=== PATIENT | male | born 1945 | race Caucasian/White ===

== ENCOUNTER 2016-12-25 11:12 | Day surgery (SDC) | payer MEDICARE, OTHER ==
[2016-12-20 09:26] LABS: HEMATOCRIT 43.3 % (40.0-51.0); HEMOGLOBIN 14.9 g/dL (13.6-17.8)
[2016-12-20 09:38] LABS: BUN (BLOOD UREA NITROGEN) 40 MG/DL (6-23); CALCIUM, SERUM 9.6 MG/DL (8.5-10.4); CHLORIDE, SERUM 104 MMOL/L (96-112); CO2 (CARBON DIOXIDE) 28 MMOL/L (24-34); CREATININE 3.08 MG/DL (0.70-1.30); GFR AFRICAN AMERICAN 22 ML/MIN (>=60); GFR NON AFRICAN AMERICAN 19 ML/MIN (>=60); GLUCOSE, SERUM 118 MG/DL (60-99); POTASSIUM, SERUM 4.6 MMOL/L (3.5-5.3); SODIUM, SERUM 137 MMOL/L (135-148)
[2016-12-20 10:09] LABS: ASCORBIC ACID (UR NOT ORDER) NEG (NEG); BILIRUBIN, URINE NEGATIVE (NEG); KETONE, URINE NEGATIVE (NEG); LEUKOCYTE ESTERASE(NOT OR NEG (NEG); WBC (NOT ORDERED) (RFLEX) 3 (0-5)
--- NOTE | ~2016-12-25 | OP ---
Record Of Operation [facility] [address] [place]. [address] NAME: DANIELLA FOWLER : 45 STATUS : [facility]#: [id number] AGE: 71 ADM/REG DATE : 12/25/16 MR#: [id number] REPORT SERV DATE: 12/26/16 DICTATED BY: WARREN ARAMBULA DATE: 12/26/16 REPORT STATUS : Draft TRANSCRIBED BY: MODBrian DATE: 12/26/16 DATE OF PROCEDURE: 12/25/2016 TITLE OF OPERATION: Cystourethroscopy with right retrograde pyelogram, placement of 6 x 28 right ureteral stent, transurethral resection of bladder tumor approximately 3 cm in size. PREOPERATIVE DIAGNOSES: 1. Hydronephrosis. 2. History of prostate cancer. POSTOPERATIVE DIAGNOSES: 1. Right hydronephrosis. 2. History of prostate cancer. 3. Bladder lesion of unclear significance. INDICATIONS: Mr. Fowler is a 71-year-old male with history of prostate cancer, status post radical prostatectomy. He has had not had any radiation therapy. He has a rising PSA. He would not tolerate hormone therapy. He is found to have incidental right hydronephrosis. He is asymptomatic with a creatinine of 3. He is here for evaluation. ANESTHESIA: General. COMPLICATIONS: None. IMPLANT: 6 x 28 right ureteral stent. SPECIMEN: Bladder mass for pathologic analysis. NARRATIVE: The patient was brought to the operating room, identified by his wristband. General anesthesia was induced. Ancef was given for preoperative antibiotics. He was placed in dorsal lithotomy position, prepped and draped in sterile fashion. A cystoscope was placed into his urethra, into his bladder. The urethra was notable for a surgically absent prostate. The prostatic urethra, the vesicourethral anastomosis was well healed. There was a raised lesion in the bradford trigone, which did not have an appearance of a papillary bladder tumor. I am concerned this is either an aggressive bladder cancer versus a recurrence of his prostate cancer. The right ureteral orifice was identified and cannulated with a 5-Angolan open-ended catheter. A retrograde pyelogram was shot, which demonstrated abrupt stoppage of contrast in the distal ureter. We were able to get a Sensor wire pass this area and advanced a 5-Angolan catheter over the wire into the mid ureter. Retrograde pyelogram was shot, which showed a dilated and tortuous right ureter. I eventually got the wire up to the level of the renal pelvis under fluoroscopic guidance and placed a 6 x 28 ureteral stent in a standard fashion. The proximal coil was seen in the renal pelvis. Distal coil was seen in the bladder. Next, I removed the cystoscope and placed a 26-Angolan resectoscope into his urethra and into his bladder. Using a 24-Angolan loop, I resected his bladder lesion to its base. These chips were evacuated from the bladder and was sent to Pathology. Hemostasis was obtained. The bladder was drained. The Record Of Operation [facility] [address] [place]. [address] NAME: DANIELLA FOWLER : 45 STATUS : [facility]#: [id number] AGE: 71 ADM/REG DATE : 12/25/16 MR#: [id number] REPORT SERV DATE: 12/26/16 DICTATED BY: WARREN ARAMBULA DATE: 12/26/16 REPORT STATUS : Draft TRANSCRIBED BY: MEHDI DATE: 12/26/16 patient was awoken from anesthesia and transferred to recovery room in stable condition. There were no complications. I will see the patient back in a week to go over pathology. MIRIAN/MEHDI Warren Arambula MD / [id number] CC: MD Kevin Dorsey M.D.
[~2016-12-25 11:12] MED LIST: ASAB PO; ATEN25 PO; BACTRONASA NAS; CENTRUM TAB1 TAB PO; COREG12 PO; COREG25 PO; DIOV160 PO; DIOV80 PO; FISH-EPA1000 MG PO; FLAGYL250 MG PO; FLAXSEED OIL1000 MG PO; FLONASE NAS; LEVAQUIN5T PO; LIPITOR40 PO; LOFIB160 PO; LOPID6 PO; NICODERM C21 MG/241 TOP; NITROSTAT0.4 MG SL; NORV5 PO; PRAVACHOL40 MG PO; PRIN10 PO; PROTONIX PO
[2017-05-06] MEDS ORDERED: ASABAYER PO (10:20)
[2017-05-06] MEDS ORDERED: LIPITOR80 MG PO (10:20)
[2017-05-06] MEDS ORDERED: COREG12 PO (10:21)
[2017-05-06] MEDS ORDERED: ARICEPT10 PO (10:21)
[2017-05-06] MEDS ORDERED: AZO STANDARD PO (10:22)
[2017-05-06] MEDS ORDERED: FLONASE NAS (10:22)
[2017-05-06] MEDS ORDERED: TRAZ50 PO (10:28)
== END 2016-12-25 16:55 | disposition home or self-care (01) ==
LOC: SDC 11:12
PROVIDERS: Urology
PROC: 0T768DZ Dilation of Right Ureter with Intraluminal Device, Via Natural or Artificial Opening Endoscopic (ICD-10-PCS; 2016-12-25)
PROC: BT1DZZZ Fluoroscopy of Right Kidney, Ureter and Bladder (ICD-10-PCS; 2016-12-25)
PROC: 0TBB8ZX Excision of Bladder, Via Natural or Artificial Opening Endoscopic, Diagnostic (ICD-10-PCS; 2016-12-25)
PROC: 0TBB8ZX Excision of Bladder, Via Natural or Artificial Opening Endoscopic, Diagnostic (ICD-10-PCS; principal; 2016-12-25 12:45)
DX: C67.9 Malignant neoplasm of bladder, unspecified (principal); N13.30 Unspecified hydronephrosis; E78.5 Hyperlipidemia, unspecified; E78.00 Pure hypercholesterolemia, unspecified; I25.10 Atherosclerotic heart disease of native coronary artery without angina pectoris; B19.10 Unspecified viral hepatitis B without hepatic coma; N18.9 Chronic kidney disease, unspecified; I12.9 Hypertensive chronic kidney disease with stage 1 through stage 4 chronic kidney disease, or unspecified chronic kidney disease; Z85.46 Personal history of malignant neoplasm of prostate; Z98.890 Other specified postprocedural states; Z90.79 Acquired absence of other genital organ(s); Z95.1 Presence of aortocoronary bypass graft; Z90.49 Acquired absence of other specified parts of digestive tract; Z88.8 Allergy status to other drugs, medicaments and biological substances; Z79.82 Long term (current) use of aspirin; Z79.899 Other long term (current) drug therapy
CPT/HCPCS: 74420; 80048; 81001; 85014; 85018; 88307; 88341; 88342; 93005; A9270-GY; C1758; C2617; J0690; J2250; J2405; J3010

== ENCOUNTER 2017-01-20 05:14 | Observation (INO) | payer MEDICARE, OTHER ==
[2017-01-16 16:32] LABS: HEMATOCRIT 41.9 % (40.0-51.0); HEMOGLOBIN 13.9 g/dL (13.6-17.8)
[2017-01-16 16:39] LABS: ASCORBIC ACID (UR NOT ORDER) NEG (NEG); BILIRUBIN, URINE NEGATIVE (NEG); KETONE, URINE NEGATIVE (NEG); LEUKOCYTE ESTERASE(NOT OR MOD (NEG); WBC (NOT ORDERED) (RFLEX) 39 (0-5)
[2017-01-16 16:45] LABS: CALCIUM, SERUM 9.5 MG/DL (8.5-10.4); CHLORIDE, SERUM 107 MMOL/L (96-112); CO2 (CARBON DIOXIDE) 27 MMOL/L (24-34); GFR AFRICAN AMERICAN 36 ML/MIN (>=60); GFR NON AFRICAN AMERICAN 31 ML/MIN (>=60); GLUCOSE, SERUM 124 MG/DL (60-99); POTASSIUM, SERUM 4.1 MMOL/L (3.5-5.3); SODIUM, SERUM 141 MMOL/L (135-148)
[2017-01-16 16:46] LABS: BUN (BLOOD UREA NITROGEN) 35 MG/DL (6-23); CREATININE 2.09 MG/DL (0.70-1.30)
--- NOTE | ~2017-01-20 | OP ---
Record Of Operation [facility] [address] [place]. [address] NAME: DANIELLA FOWLER : 45 STATUS : ADM IN [facility]#: [id number] AGE: 71 ADM/REG DATE : 01/20/17 MR#: [id number] REPORT SERV DATE: 01/20/17 DICTATED BY: WARREN ARAMBULA DATE: 01/20/17 REPORT STATUS : Draft TRANSCRIBED BY: MODL DATE: 01/20/17 DATE OF PROCEDURE: 01/20/2017 SURGEON: Warren Arambula MD FILEMON OF OPERATION: 1. Robot-assisted laparoscopic lysis of adhesions. 2. Robot-assisted laparoscopic resection of omental mass. 3. Robot-assisted laparoscopic psoas hitch with right ureteral reimplantation. PREOPERATIVE DIAGNOSIS: Hydronephrosis, secondary to distal ureteral stricture. POSTOPERATIVE DIAGNOSIS: Hydronephrosis, secondary to distal ureteral stricture. INDICATIONS: Mr. Fowler is a 71-year-old male, with a history of prostate cancer. He has a history of prostatectomy done by another surgeon. He developed a local recurrence with obstruction of his distal right ureter. He has acute renal failure. He has a stent, he has non-tolerant to the stent. He is here for ureteral reimplantation. ANESTHESIA: General. COMPLICATIONS: None. IMPLANTS: 1. 16-Maltese Hawley catheter. 2. 6 x 22 right ureteral stent. SPECIMEN: Omental mass. NARRATIVE: The patient was brought to the operating room, identified by his wristband. General anesthesia was induced and Ancef was given for preoperative antibiotics. He was placed in dorsal lithotomy position, prepped and draped in sterile fashion. A 5 mm port was placed in a supraumbilical position under direct vision. The abdomen was inspected, there were some dense colonic adhesions to his bladder. A standard X-Y port placement was performed, with two 8 mm ports on the left side of the body, and one 8 mm port on the right side of the body. A 12 mm port was placed in the right lower quadrant for an regulatory affairs assistant port. The 5 mm supraumbilical port was exchanged for an 8 mm port. The patient was placed in Trendelenburg. I began the operation by meticulously lysing the colonic adhesions off the bladder, this took approximately an hour and a half. These were there from his prior prostate surgery. Once the bladder had been freed from its attachments to the colon, I freed up down to beneath the bladder and gently lysed the rectum off the bladder. The bladder was then dropped off the pubic bone and the peritoneal attachments of the bladder were taken down bilaterally. The right ureter was then identified. It was markedly enlarged. The peritoneum overlying the ureter was incised. The ureter was dissected circumferentially and a vessel loop was placed. The ureter was dissected from the pelvic inlet and down to the level of the bladder. The ureter was then transected, the distal Record Of Operation [facility] [address] [place]. [address] NAME: DANIELLA FOWLER : 45 STATUS : ADM IN PAT#: [id number] AGE: 71 ADM/REG DATE : 01/20/17 MR#: [id number] REPORT SERV DATE: 01/20/17 DICTATED BY: WARREN ARAMBULA DATE: 01/20/17 REPORT STATUS : Draft TRANSCRIBED BY: MEHDI DATE: 01/20/17 portion was clipped. The previously placed stent was removed robotically. Next, a psoas hitch was performed from the psoas muscle to the dome of the bladder using a running 2-0 V- Loc suture. The serosa was then cleared off the bladder. A small vertical cystotomy was made through the muscularis propria and muscularis mucosa. The ureter was spatulated with Wong scissors. A running anastomosis was performed between the ureter and the bladder using two 4-0 V-Loc sutures. Prior to completion of the anastomosis, a 6 x 22 Hancock Inlay stent was placed in retrograde fashion. The bladder was tested, the connection was water tight. The serosa was closed over the reimplantation for additional support. The robot was undocked. The regulatory affairs assistant port was closed with 0 Vicryl suture using Narciso-Leonard device. A #10 round BHAVNA drain was placed to the left most lateral robotic port. It was sutured in place with a 2-0 silk suture. The other ports were removed. The wound was irrigated clear. Skin was closed with 4-0 Monocryl suture. Dermabond dressing was placed. The patient was awoken from anesthesia and transferred to recovery room in stable condition. There were no complications. I also noted a mass on the omentum that was approximately 2 cm in size. It is unclear if this was a metastatic deposit or simply reaction from prior surgery. I do favor that it was reaction of prior surgery. I was able to grasp the mass with my ProGrasp graspers. Using scissors and cautery, I resected the mass off the omentum and sent it to pathology for analysis. MIRIAN/MEHDI Warren Arambula MD / [id number] CC: Warren Arambula MD
[2017-01-20 10:51] LABS: BASOPHILS 0.4 %; BASOPHILS ABSOLUTE 0.03 10/3/uL (0.0-0.16); EOSINOPHILS 1.4 %; EOSINOPHILS ABSOLUTE 0.11 10/3/uL (0.0-0.53); HEMATOCRIT 41.3 % (40.0-51.0); IMMATURE GRANULOCYTES 0.3 %; IMMATURE GRANULOCYTES ABSOLUTE 0.02 10/3/uL (0.0-0.11); LYMPHOCYTES 9.6 %; LYMPHOCYTES ABSOLUTE 0.77 10/3/uL (0.67-4.30); MANUAL DIFF NO %; MEAN CORPUS HGB CONC 33.9 g/dL (32.0-36.0); MEAN CORPUSCULAR HEMOGLOB 29.9 pg (26.0-34.0); MEAN CORPUSCULAR VOLUME 88.2 fL (80-100); MEAN PLATELET VOLUME 10.6 fL (9.2-13.0); MONOCYTES 4.5 %; MONOCYTES ABSOLUTE 0.36 10/3/uL (0.21-1.20); NEUTROPHILS 83.8 %; NEUTROPHILS ABSOLUTE 6.69 10/3/uL (2.02-8.40); PLATELET COUNT 214 10/3/uL (150-400); RBC DISTRIBUTION WIDTH 13.5 % (12.0-16.0); RED CELL COUNT 4.68 10/6/uL (4.7-6.1)
[2017-01-20 11:02] LABS: CALCIUM, SERUM 8.6 MG/DL (8.5-10.4); CHLORIDE, SERUM 108 MMOL/L (96-112); CO2 (CARBON DIOXIDE) 25 MMOL/L (24-34); CREATININE 1.85 MG/DL (0.70-1.30); GFR AFRICAN AMERICAN 42 ML/MIN (>=60); GFR NON AFRICAN AMERICAN 36 ML/MIN (>=60); GLUCOSE, SERUM 137 MG/DL (60-99); POTASSIUM, SERUM 4.7 MMOL/L (3.5-5.3); SODIUM, SERUM 137 MMOL/L (135-148)
[2017-01-20 11:03] LABS: BUN (BLOOD UREA NITROGEN) 28 MG/DL (6-23)
[2017-01-21 07:06] LABS: BUN (BLOOD UREA NITROGEN) 26 MG/DL (6-23); CALCIUM, SERUM 8.7 MG/DL (8.5-10.4); CHLORIDE, SERUM 108 MMOL/L (96-112); CO2 (CARBON DIOXIDE) 25 MMOL/L (24-34); CREATININE 2.14 MG/DL (0.70-1.30); GFR AFRICAN AMERICAN 35 ML/MIN (>=60); GFR NON AFRICAN AMERICAN 30 ML/MIN (>=60); GLUCOSE, SERUM 127 MG/DL (60-99); POTASSIUM, SERUM 4.5 MMOL/L (3.5-5.3); SODIUM, SERUM 139 MMOL/L (135-148)
[2017-01-21] MEDS ORDERED: DSS PO (13:08)
[2017-01-21] MEDS ORDERED: PCET PO (13:09)
[2017-05-06] MEDS ORDERED: LIPITOR80 MG PO (10:20)
[2017-05-06] MEDS ORDERED: ASABAYER PO (10:20)
[2017-05-06] MEDS ORDERED: ARICEPT10 PO (10:21)
[2017-05-06] MEDS ORDERED: COREG12 PO (10:21)
[2017-05-06] MEDS ORDERED: AZO STANDARD PO (10:22)
[2017-05-06] MEDS ORDERED: FLONASE NAS (10:22)
[2017-05-06] MEDS ORDERED: TRAZ50 PO (10:28)
== END 2017-01-21 14:24 | disposition home or self-care (01) ==
LOC: SDC/OF 05:14 → PACU 10:30 → 4SO 11:47
PROVIDERS: Urology
PROC: 0DBT4ZX (ICD-10-PCS; 2017-01-20)
PROC: 0T164ZB Bypass Right Ureter to Bladder, Percutaneous Endoscopic Approach (ICD-10-PCS; principal; 2017-01-20 06:30)
DX: N13.1 Hydronephrosis with ureteral stricture, not elsewhere classified (principal); K65.4 Sclerosing mesenteritis; I25.10 Atherosclerotic heart disease of native coronary artery without angina pectoris; I12.9 Hypertensive chronic kidney disease with stage 1 through stage 4 chronic kidney disease, or unspecified chronic kidney disease; N18.9 Chronic kidney disease, unspecified; I73.9 Peripheral vascular disease, unspecified; E78.00 Pure hypercholesterolemia, unspecified; Z85.46 Personal history of malignant neoplasm of prostate; Z87.891 Personal history of nicotine dependence; Z88.8 Allergy status to other drugs, medicaments and biological substances; Z90.49 Acquired absence of other specified parts of digestive tract; Z98.890 Other specified postprocedural states; Z90.79 Acquired absence of other genital organ(s)
CPT/HCPCS: 36415; 80048; 81001; 82570; 83735; 85014; 85018; 85025; 86850; 86900; 86901; 87077; 87086; 87186; 88305; 93005; 96374; A9270-GY; C2617; G0378; J0690; J1885; J2250; J2405; J2710; J2795; J3010

== ENCOUNTER 2017-05-07 08:10 | Day surgery (SDC) | payer MEDICARE, OTHER ==
[~2017-05-07] VITALS: Ht 185.4 cm; Wt 98.9 kg
--- NOTE | ~2017-05-07 | EGD ---
EGD REPORT [facility] [address] [address] NAME: DANIELLA FOWLER : 45 STATUS : REG [facility]#: [id number] AGE: 72 ADM/REG DATE : 05/07/17 MR#: [id number] REPORT SERV DATE: 05/07/17 DICTATED BY: OZZY DOBBS DATE: 05/07/17 REPORT STATUS : Draft [facility]ANS[facility]: [facility] DATE: 05/07/17 Pulmonology Patient Name: Daniella Fowler Procedure Date: 05/07/2017 9:39 AM Date of : 1945 Attending MD: FREDRICK DOBBS MD Procedure Date No Time: 05/07/2017 Procedure: Bronchoscopy Indications: 4 mm soft tissue abnormality Providers: FREDRICK DOBBS MD Referring MD: AMANDA HARVEY, KEI SHEPARD MD Medicines: Lidocaine 2% 20 mL Complications: No immediate complications Procedure: Pre-Anesthesia Assessment: - ASA Grade Assessment: III - A patient with severe systemic disease. - A History and Physical has been performed. Patient meds and allergies have been reviewed. The risks and benefits of the procedure and the sedation options and risks were discussed with the patient. All questions were answered and informed consent was obtained. Patient identification and proposed procedure were verified prior to the procedure by the physician and the nurse in the pre-procedure area in the procedure room. Mental Status Examination: normal. Airway Examination: normal oropharyngeal airway. Respiratory Examination: clear to auscultation. CV Examination: normal and RRR, no murmurs, no S3 or S4. ASA Grade Assessment: III - A patient with severe systemic disease. After reviewing the risks and benefits, the patient was deemed in satisfactory condition to undergo the procedure. The anesthesia plan was to use general anesthesia. Immediately prior to administration of medications, the patient was re-assessed for adequacy to receive sedatives. The heart rate, respiratory rate, oxygen saturations, blood pressure, adequacy of pulmonary ventilation, and response to care were monitored throughout the procedure. The physical status of the patient was re-assessed after the procedure. After obtaining informed consent, the BF [id number] was introduced through the mouth, via laryngeal mask airway and advanced to the tracheobronchial tree. the Bronchoscope was introduced through the mouth, via laryngeal mask airway and advanced to the tracheobronchial tree. The procedure was accomplished without difficulty. The patient tolerated the procedure EGD REPORT [place] [address] [address] NAME: DANIELLA FOWLER : 45 STATUS : [place] [facility] [place]#: [id number] AGE: 72 ADM/REG DATE : 05/07/17 MR#: [id number] REPORT SERV DATE: 05/07/17 DICTATED BY: OZZY DOBBS DATE: 05/07/17 REPORT STATUS : Draft TRANSCRIBED BY: [facility] DATE: 05/07/17 [facility]. Findings: The laryngeal mask airway is in normal position. The vocal cords move normally with breathing. The subglottic space is normal. The trachea is of normal caliber. The kelli is sharp. The tracheobronchial tree was examined to at least the first subsegmental level. Bronchial mucosa and anatomy are normal; there are no endobronchial lesions. Thick retained secretions were therapeutically aspirated. Impression: Thick retained secretions were therapeutically aspirated. Recommendation: - Follow up in clinic as previously scheduled with Dr. Shepard Attending Participation: I personally performed the entire procedure. FREDRICK DOBBS MD 05/07/2017 10:47 AM This report has been signed electronically. Number of Addenda: 0 Note Initiated On: 05/07/2017 9:39 [place] [address]
--- NOTE | ~2017-05-07 | CN ---
Consultation Report [facility] [address] [place]. [address] NAME: DANIELLA FOWLER : 45 STATUS : REG [facility]#: [id number] AGE: 72 ADM/REG DATE : 05/07/17 MR#: [id number] REPORT SERV DATE: 05/07/17 DICTATED BY: BARRON DOBBS DATE: 05/07/17 REPORT STATUS : Draft TRANSCRIBED BY: MODL DATE: 05/07/17 CONSULTATION DATE OF CONSULTATION: Dear Dr. Kevin Velazquez, Dr. Jose Mulligan, and Dr. Lau: Thank you for requesting my opinion regarding evaluation and management of Mr. Daniella Fowler abnormal CT screening scan. Mr. Fowler is an extremely pleasant 72-year-old gentleman, with a 75-bcuo-holu smoking history, quit seven years ago, coronary artery disease, status post CABG in 2011, AAA stent, stroke, CKD, and an ejection fraction of approximately 45%, who presents to [facility] for formal evaluation of an abnormal screening CT scan of the chest. The patient's CT screen performed on 04/11/2017 demonstrated a small indeterminate 4 mm soft tissue nodular density along the posterior mucosa of the lower trachea just above the kelli, not visible on the prior exam. Short interval followup in six months for bronchoscopy was recommended. The patient states that he has chronic shortness of breath well localized to the chest, nonradiating with no significant alleviating or exacerbating factors. He denies any history of weight loss, weight gain, fevers, chills, night sweats, airway issues such as cough etc. The patient denies any hemoptysis or recent upper respiratory infection. REVIEW OF SYSTEMS: A detailed 14-point review of systems was completed. Pertinent positives and negatives are listed above. PAST MEDICAL HISTORY: 1. Radical prostatectomy [place] [address] Nikos Mora for pathologic stage T3bN1 prostate cancer, status post Lupron and subsequent radiation by Dr. Jose Mulliagn. The patient was noted to have a Edilberto score of 10. 2. Hyperlipidemia. 3. Hypertension. 4. Thyroid disease. 5. Hiatal hernia. 6. Heart disease with a known ejection fraction of approximately 45%, pre CABG with EF of 30%. 7. Hiatal hernia. PAST SURGICAL HISTORY: 1. Status post appendectomy. 2. CABG in 2011. 3. Hernia repair. FAMILY HISTORY: Negative for cancer. Consultation Report [place] [id number] [place]. [address] NAME: DANIELLA FOWLER : 45 STATUS : REG [facility] PAT#: [id number] AGE: 72 ADM/REG DATE : 05/07/17 MR#: [id number] REPORT SERV DATE: 05/07/17 DICTATED BY: BARRON DOBBS DATE: 05/07/17 REPORT STATUS : Draft TRANSCRIBED BY: MEHDI DATE: 05/07/17 SOCIAL HISTORY: The patient is . His is with him. He quit smoking seven years ago, but smoked approximately two packs per day for 46 years for a total of 92 pack years. He has also drank in the past, but currently has no history of alcohol or illicit drug abuse. PHYSICAL EXAMINATION: VITAL SIGNS: 120/68, pulse of 78, respiratory rate of 20, sats 97%, afebrile 97.8, weight of 213. GENERAL: No acute distress. Alert and oriented x3. Appropriate mood and affect. Appropriate insight and judgment. NEUROLOGIC: 5/5 strength in upper and lower extremities. Cranial nerves 2 through 12 intact. Gait not tested. DTRs not performed. CARDIOVASCULAR: Regular rate and rhythm. S1 and S2 present. LUNGS: Clear to auscultation bilaterally. ABDOMEN: Nontender, nondistended. Soft. Positive bowel sounds. EXTREMITIES: No clubbing, cyanosis, or edema. 04/11/2000 CT scan of the chest screening scan demonstrated a small indeterminate 4 mm soft tissue nodular density in the posterior mucosa of the lower trachea just above the kelli not visible on the prior exam. This may represent focal endotracheal focal mucosal secretion or debris versus a small neoplastic nodule, recommendation of a 6-month interval followup for bronchoscopy should be considered, moderate severe centrilobular emphysema pattern, and upper lobe predominant 1. No thoracic adenopathy or active pulmonary disease. No suspicious pulmonary nodules. 2. Nonobstructing left nephrolithiasis and stable dystrophic calcifications, left renal cortex, and small left renal cyst. 3. Stable changes of CABG. 4. This CT scan has been personally reviewed by me and I agree with the above interpretation. ASSESSMENT AND PLAN: Mr. Daniella Fowler is an extremely pleasant 72-year-old gentleman with a significant past medical history of emphysema, presumably chronic obstructive pulmonary disease, 92 plus pack year smoking history, quit seven years ago, coronary artery disease, status post CABG in 2011, AAA stent, chronic kidney disease, and ejection fraction of 45%, who presents to [facility] after an abnormal screening CT scan of the chest demonstrating a 4 mm soft tissue nodular density along the posterior mucosa. The differential diagnosis could include just retained secretions, an inflammatory process, or primary lung malignancy. At this point, we discussed in detail potential options including repeat scan or bronchoscopic inspection. After careful discussion of the risks, benefits, and alternatives to each of these options, we agreed to proceed forward with bronchoscopy. The patient is aware that the procedure is associated with potential life-threatening risks, including lung collapse, respiratory failure, and even . RECOMMENDATIONS: A summary of my recommendations are as follows: 1. Proceed with bronchoscopy. Consultation Report [facility] [address] [place]. [address] NAME: DANIELLA FOWLER : 45 STATUS : REG [facility] PAT#: [id number] AGE: 72 ADM/REG DATE : 05/07/17 MR#: [id number] REPORT SERV DATE: 05/07/17 DICTATED BY: BARRON DOBBS DATE: 05/07/17 REPORT STATUS : Draft TRANSCRIBED BY: MEHDI DATE: 05/07/17 2. Follow up with Dr. Lau. Thank you for allowing me to participate in Mr. Fowler' care. YULIA/MEHDI Barron Dobbs M.D. / [id number] CC: Hollie Espinal M.D.
[~2017-05-07 08:10] MED LIST changes: +ARICEPT10 PO; +ASABAYER PO; +AZO STANDARD PO; +DSS PO; +LIPITOR80 MG PO; +PCET PO; +TRAZ50 PO
[2017-05-07 08:33] LABS: BASOPHILS 0.8 %; BASOPHILS ABSOLUTE 0.04 10/3/uL (0.0-0.16); EOSINOPHILS 7.6 %; EOSINOPHILS ABSOLUTE 0.37 10/3/uL (0.0-0.53); HEMATOCRIT 41.5 % (40.0-51.0); HEMOGLOBIN 13.8 g/dL (13.6-17.8); IMMATURE GRANULOCYTES 0.6 %; IMMATURE GRANULOCYTES ABSOLUTE 0.03 10/3/uL (0.0-0.11); LYMPHOCYTES 11.1 %; LYMPHOCYTES ABSOLUTE 0.54 10/3/uL (0.67-4.30); MEAN CORPUS HGB CONC 33.3 g/dL (32.0-36.0); MEAN CORPUSCULAR HEMOGLOB 29.9 pg (26.0-34.0); MEAN CORPUSCULAR VOLUME 89.8 fL (80-100); MEAN PLATELET VOLUME 9.8 fL (9.2-13.0); MONOCYTES 13.5 %; MONOCYTES ABSOLUTE 0.66 10/3/uL (0.21-1.20); NEUTROPHILS 66.4 %; NEUTROPHILS ABSOLUTE 3.24 10/3/uL (2.02-8.40); PLATELET COUNT 220 10/3/uL (150-400); RBC DISTRIBUTION WIDTH 13.6 % (12.0-16.0); RED CELL COUNT 4.62 10/6/uL (4.7-6.1); WHITE BLOOD CELLS 4.9 10/3/uL (4.5-10.5)
[2017-05-07 08:34] LABS: MANUAL DIFF NO %
[2017-05-07 08:40] LABS: PARTIAL THROMBO TIME 27.5 SEC (22.5-37.2); PROTIME (NOT ORD) 13.4 SEC (12.0-14.5)
[2017-05-07 08:45] LABS: BUN (BLOOD UREA NITROGEN) 28 MG/DL (6-23); CALCIUM, SERUM 9.5 MG/DL (8.5-10.4); CHLORIDE, SERUM 106 MMOL/L (96-112); CO2 (CARBON DIOXIDE) 27 MMOL/L (24-34); CREATININE 1.64 MG/DL (0.70-1.30); GFR AFRICAN AMERICAN 48 ML/MIN (>=60); GFR NON AFRICAN AMERICAN 41 ML/MIN (>=60); GLUCOSE, SERUM 103 MG/DL (60-99); POTASSIUM, SERUM 4.1 MMOL/L (3.5-5.3); SODIUM, SERUM 140 MMOL/L (135-148)
== END 2017-05-07 23:59 | disposition home or self-care (01) ==
LOC: DMU 08:10
PROVIDERS: Anesthesiology; Internal Medicine
PROC: 0B918ZZ Drainage of Trachea, Via Natural or Artificial Opening Endoscopic (ICD-10-PCS; principal; 2017-05-07 09:30)
DX: J39.8 Other specified diseases of upper respiratory tract (principal); N18.9 Chronic kidney disease, unspecified; Z86.73 Personal history of transient ischemic attack (TIA), and cerebral infarction without residual deficits; Z95.1 Presence of aortocoronary bypass graft; Z87.891 Personal history of nicotine dependence; Z88.8 Allergy status to other drugs, medicaments and biological substances; Z90.79 Acquired absence of other genital organ(s); Z90.49 Acquired absence of other specified parts of digestive tract; Z79.82 Long term (current) use of aspirin; Z79.51 Long term (current) use of inhaled steroids; Z79.899 Other long term (current) drug therapy
CPT/HCPCS: 71010; 80048; 85025; 85610; 85730; 93005; J2370; J2405